=== PATIENT | female | born 1960 | race Caucasian/White ===

== ENCOUNTER 2018-03-28 18:24 | Inpatient (IN) | payer SELFPAY ==
[~2018-03-28] VITALS: Ht 157.5 cm; Wt 74.5 kg
[~2018-03-28 18:24] MED LIST: PERCOCET 5/31 TABLET PO
[2018-03-28 19:19] LABS: HEMATOCRIT 43.6 % (36.0-46.0); HEMOGLOBIN 15.8 G/DL (11.9-15.5); MCH 33.1 PG (29.0-34.0); MCHC 36.2 G/DL (30.0-36.0); MCV 91.2 FL (83-99); PLATELET COUNT 273 K/uL (156-360); RBC DIS.WIDTH-CV 11.9 % (11.8-14.6); RBC DIS.WIDTH-SD 39.8 % (39-53); RED BLOOD COUNT 4.78 M/uL (3.80-5.20); WHITE BLOOD COUNT 9.3 K/uL (4.1-10.2)
[2018-03-28 19:25] LABS: INTER. NORMALIZED RATIO 1.1
[2018-03-28 19:28] LABS: PTT 29.4 SEC (25-37)
[2018-03-28 19:31] LABS: ALBUMIN 3.9 g/dL (3.2-4.8)
[2018-03-28 19:32] LABS: CHLORIDE 108 mEq/L (99-109); POTASSIUM 3.9 mEq/L (3.7-5.4); SODIUM 139 mEq/L (136-147)
[2018-03-28 19:34] LABS: GLUCOSE 100 mg/dL (70-99); TOTAL PROTEIN 7.2 g/dL (6.4-8.3)
[2018-03-28 19:36] LABS: TOTAL BILIRUBIN 0.5 mg/dL (0.0-1.0)
[2018-03-28 19:37] LABS: ALKALINE PHOSPHATASE 149 IU/L (3-129)
[2018-03-28 19:38] LABS: CREATININE 0.7 mg/dL (0.6-1.3); GFR ESTIMATE (CALCULATED) > 59 mL/min/
[2018-03-28 19:39] LABS: AST (GOT) 46 IU/L (2-34); UREA NITROGEN (BUN) 10 mg/dL (9-23)
[2018-03-28 19:41] LABS: ALT (GPT) 94 IU/L (3-49)
[2018-03-28 19:52] LABS: TROP-I INTERPRETATION NEGATIVE; TROPONIN-I < 0.01 ng/mL (0.0-0.30)
[2018-03-28] MEDS ORDERED: TYLENOL ARTHRI650 MG PO (21:19)
[2018-03-29] VITALS (7 sets, daily range): BP systolic 106–136; BP diastolic 65–93
[2018-03-29 00:49] LABS: CREATINE KINASE 80 IU/L (1-294)
[2018-03-29 01:42] LABS: HDL CHOLESTEROL 51 MG/DL (Desirable>=50); LDL CHOLESTEROL 124 mg/dL (Desirable<100); NON-HDL CHOLESTEROL 142 mg/dL (Desirable<160); TOTAL CHOLESTEROL 193 mg/dL (Desirable<200); TRIGLYCERIDES 91 MG/DL (Normal: <150)
[2018-03-29 04:44] LABS: HEMOGLOBIN 14.5 G/DL (11.9-15.5); MCH 31.8 PG (29.0-34.0); MCHC 34.5 G/DL (30.0-36.0); MCV 92.1 FL (83-99); PLATELET COUNT 264 K/uL (156-360); RBC DIS.WIDTH-SD 41.1 % (39-53); RED BLOOD COUNT 4.56 M/uL (3.80-5.20); WHITE BLOOD COUNT 8.1 K/uL (4.1-10.2)
[2018-03-29 05:09] LABS: CHLORIDE 108 MEQ/L (99-109); CREATININE 0.6 MG/DL (0.6-1.3); GFR ESTIMATE (CALCULATED) > 59 mL/min/; GLUCOSE 99 mg/dL (70-99); POTASSIUM 3.7 MEQ/L (3.7-5.4); SODIUM 140 MEQ/L (136-147); UREA NITROGEN (BUN) 8 mg/dL (9-23)
[2018-03-29 07:43] LABS: THYROTROPIN (TSH) 3.4 MIU/L (0.4-5.5)
[2018-03-29 09:39] LABS: HEMOGLOBIN A1c (GLYCOHEMOGLOB) 5.4 % (Below 5.7)
[2018-03-30 03:47] VITALS: BP 123/70
[2018-03-30 07:37] VITALS: BP 129/76
[2018-03-30 11:17] VITALS: BP 136/78
[2018-03-30 15:30] VITALS: BP 126/69
[2018-03-31 00:58] VITALS: BP 134/83
[2018-03-31 08:00] VITALS: BP 107/64
[2018-03-31 16:42] VITALS: BP 100/59
[2018-03-31 23:56] VITALS: BP 100/59
[2018-04-01 07:36] VITALS: BP 121/63
[2018-04-01 16:00] VITALS: BP 92/55
[2018-04-02] VITALS: BP 86/52; BP 96/52
[2018-04-02 07:14] VITALS: BP 117/64
[2018-04-02] MEDS ORDERED: ATORVASTATIN CA40 MG PO (08:07)
[2018-04-02] MEDS ORDERED: ASPIR-LOW81 MG PO (08:07)
[2018-04-02] MEDS ORDERED: DULERA 100 MCG/13 GM IH (08:07)
[2018-04-02] MEDS ORDERED: NICOTINE PATCH1 EAC2 TD (08:07)
[2018-04-02] MEDS ORDERED: DIVALPROEX SOD250 M1 PO (08:07)
[2018-04-02] MEDS ORDERED: ALBUTEROL2.5 MG/0.5 AEROSOL (08:08)
[2018-04-02] MEDS ORDERED: FLUOXETINE HCL20 MG PO (09:25)
== END 2018-04-02 10:42 | DRG 65 ==
LOC: EME 18:24 → 5SOUTH 23:11 → EDOF 23:11 → ENRESERV 23:13 → 5SOUTH 23:54
PROVIDERS: Emergency Medicine Emergency Medical Services; Hospitalist
DX: I63.9 Cerebral infarction, unspecified (principal); I69.359 Hemiplegia and hemiparesis following cerebral infarction affecting unspecified side; F33.9 Major depressive disorder, recurrent, unspecified; F17.210 Nicotine dependence, cigarettes, uncomplicated; F12.90 Cannabis use, unspecified, uncomplicated; G89.29 Other chronic pain; I10 Essential (primary) hypertension; D64.9 Anemia, unspecified; R29.705 NIHSS score 5; M54.5 Low back pain; R47.1 Dysarthria and anarthria; R21 Rash and other nonspecific skin eruption; Z79.51 Long term (current) use of inhaled steroids
CPT/HCPCS: 70450; 70551; 71045; 72100; 72131; 72192; 76705; 80048; 80053; 80061; 81003; 82550 91; 83036; 84443; 84484; 85027; 85610; 85651; 85730; 86038; 93005; 93306; 93880; 94640; 94640 76; 97530 GP; 99202; 99281; 99285; J1650; J2060; J3010; J7040

== ENCOUNTER 2018-04-02 10:49 | Inpatient (IN) | payer OTHER ==
[~2018-04-02] VITALS: Ht 165.1 cm; Wt 71.5 kg
[2018-04-02 10:40] VITALS: BP 96/55
[~2018-04-02 10:49] MED LIST changes: +ALBUTEROL2.5 MG/0.5 AEROSOL; +ASPIR-LOW81 MG PO; +ATORVASTATIN CA40 MG PO; +DIVALPROEX SOD250 M1 PO; +DULERA 100 MCG/13 GM IH; +FLUOXETINE HCL20 MG PO; +NICOTINE PATCH1 EAC2 TD; +TYLENOL ARTHRI650 MG PO
[2018-04-02 15:50] VITALS: BP 115/65
[2018-04-03 00:08] VITALS: BP 116/66
[2018-04-03 04:27] VITALS: BP 95/58
[2018-04-03 07:00] LABS: HEMATOCRIT 43.6 % (36.0-46.0); HEMOGLOBIN 15.2 G/DL (11.9-15.5); MCHC 34.9 G/DL (30.0-36.0); MCV 91.8 FL (83-99); PLATELET COUNT 227 K/uL (156-360); RBC DIS.WIDTH-CV 11.9 % (11.8-14.6); RED BLOOD COUNT 4.75 M/uL (3.80-5.20)
[2018-04-03 07:31] LABS: ALBUMIN 3.8 G/DL (3.2-4.8); ALKALINE PHOSPHATASE 111 IU/L (3-129); ALT (GPT) 94 IU/L (3-49); AST (GOT) 60 IU/L (2-34); CHLORIDE 107 MEQ/L (99-109); CREATININE 0.6 MG/DL (0.6-1.3); GFR ESTIMATE (CALCULATED) > 59 mL/min/; GLUCOSE 97 mg/dL (70-99); POTASSIUM 3.8 MEQ/L (3.7-5.4); SODIUM 139 MEQ/L (136-147); TOTAL BILIRUBIN 0.6 MG/DL (0.0-1.0); UREA NITROGEN (BUN) 11 mg/dL (9-23)
[2018-04-03 15:52] VITALS: BP 100/57
[2018-04-04 05:13] VITALS: BP 104/57
[2018-04-04 14:50] LABS: APPEARANCE CLOUDY ((CLEAR)); BILIRUBIN NEGATIVE; BLOOD SMALL; COLOR YELLOW ((YELLOW)); GLUCOSE (STRIP) NEGATIVE; KETONES 5; LEUKOCYTES LARGE; NITRITE NEGATIVE; PROTEIN (STRIP) NEGATIVE
[2018-04-04 15:01] LABS: BACTERIA 2+ /HPF; CALCIUM OXALATE CRYSTALS 1+ /HPF; EPITHELIAL CELLS 4+ /HPF; MUCUS 3+ /LPF; WHITE BLOOD CELLS 20-30 /HPF (0-5)
[2018-04-04 15:48] VITALS: BP 121/69
[2018-04-05 05:28] VITALS: BP 113/77
[2018-04-05 15:25] VITALS: BP 106/71
[2018-04-06 05:53] VITALS: BP 97/60
[2018-04-06 15:08] VITALS: BP 114/76
[2018-04-07 06:42] VITALS: BP 104/65
[2018-04-07 14:26] VITALS: BP 102/66
[2018-04-07 16:45] VITALS: BP 101/66
[2018-04-08 05:02] VITALS: BP 100/55
[2018-04-08] MEDS ORDERED: CIPROFLOXACIN500 M1 PO (10:45)
[2018-04-08] MEDS ORDERED: MEVACOR40 MG PO ×2 (10:45→11:52)
[2018-04-08] MEDS ORDERED: VALPROIC ACID250 MG PO (10:45)
[2018-04-08] MEDS ORDERED: FLUOXETINE HCL20 MG PO ×2 (10:51→11:52)
[2018-04-08] MEDS ORDERED: TRAZODONE HCL50 MG PO ×2 (10:51→11:52)
[2018-04-08] MEDS ORDERED: DULERA 100 MCG/13 GM IH (11:52)
[2018-04-08] MEDS ORDERED: DOCUSATE SODIU100 MG PO (11:52)
[2018-04-08] MEDS ORDERED: ASPIR-LOW81 MG PO (11:52)
[2018-04-08] MEDS ORDERED: NICOTINE PATCH1 EAC2 TD (11:52)
[2018-04-08] MEDS ORDERED: LORAZEPAM0.5 MG PO (11:52)
[2018-04-08 15:18] VITALS: BP 112/66
[2018-04-09 05:54] VITALS: BP 100/56
== END 2018-04-09 12:05 | disposition home health service (06) | DRG 57 ==
LOC: 3WEST 10:49 → ENPENDDIS 04-09 → 3WEST 04-09 12:05
PROVIDERS: Physical Medicine & Rehabilitation Pain Medicine; Psychiatry & Neurology Neurology
PROC: F07M0ZZ Range of Motion and Joint Mobility Treatment of Musculoskeletal System - Whole Body (ICD-10-PCS; principal; 2018-04-02)
DX: I69.351 Hemiplegia and hemiparesis following cerebral infarction affecting right dominant side (principal); I69.328 Other speech and language deficits following cerebral infarction; R26.9 Unspecified abnormalities of gait and mobility; F32.9 Major depressive disorder, single episode, unspecified; F41.9 Anxiety disorder, unspecified; G89.29 Other chronic pain; R94.5 Abnormal results of liver function studies; E78.5 Hyperlipidemia, unspecified; D64.9 Anemia, unspecified; Z88.2 Allergy status to sulfonamides; M54.5 Low back pain; R35.0 Frequency of micturition; F17.210 Nicotine dependence, cigarettes, uncomplicated; M41.9 Scoliosis, unspecified; M19.90 Unspecified osteoarthritis, unspecified site
CPT/HCPCS: 80053; 80164; 81003; 85027; 87086; 97110 GO; 97112 GO; 97530 GP; 99202; J1650